=== PATIENT | female | born 1960 | race Caucasian/White ===

== ENCOUNTER 2016-11-29 12:13 | Emergency (ER) | payer BC, OTHER ==
[2016-11-29] MEDS ORDERED: Ondansetron INJ* 2 MG/ML VIAL IV ONE (13:01)
[2016-11-29] MEDS ORDERED: Ketorolac INJ* 30 MG/ML 1 ML VIAL IV ONE (13:01)
[2016-11-29] MEDS ORDERED: Morphine INJ* 4 MG/ML 1 ML CARPUJECT IV ONE (13:01)
[2016-11-29] MEDS ORDERED: Orphenadrine Citrate IV* 30 MG/ML 2 ML VIAL IV ONE (13:03)
[2016-11-29 13:23] LABS: Hematocrit 37 % (35-47); Hemoglobin 12.4 g/dl (12.0-16.0); Mean Corpuscular HGB Conc 33 g/dl (31-36); Mean Corpuscular Hemoglobin 28 pg (27-31); Mean Corpuscular Volume 83 fL (80-97); Mean Platelet Volume 9 um3 (7.4-10.4); Red Blood Count 4.51 10^6/ul (4.0-5.4); Red Cell Distribution Width 16 % (10.5-15); White Blood Count 6.2 10^3/ul (3.5-10.8)
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
[2016-11-29 13:50] LABS: Albumin 4.6 g/dL (3.2-5.2); BUN/Creatinine Ratio 28.3 (8-20); Calcium 9.3 mg/dL (8.6-10.3); EGFR African American 132.1 (>60); EGFR Non-African American 102.7 (>60); Globulin 3.2 g/dL (2-4); Potassium 4.1 mmol/L (3.5-5.0); Total Bilirubin 0.7 mg/dL (0.2-1.0); Total Protein 7.8 g/dL (6.4-8.9)
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
[2016-11-29 14:39] VITALS: BP 134/67
== END 2016-11-29 14:38 | disposition home or self-care (01) ==
LOC: ED 12:13
DX: M54.2 Cervicalgia (principal); Z04.1 Encounter for examination and observation following transport accident
CPT/HCPCS: 36415; 70450; 72125; 80053; 85025; 96374; 96375; 99283; J1885; J2270; J2360; J2405

== ENCOUNTER 2019-12-05 15:39 | Emergency (ER) | payer OTHER ==
[2019-12-05 16:16] LABS: ABS Eosinophils 0.1 10^3/ul (0-0.6); ABS Lymphocytes 1.6 10^3/ul (1.0-4.8); ABS Monocytes 0.4 10^3/ul (0-0.8); ABS Neutrophils 2.6 10^3/ul (1.5-7.7); Eosinophil % 3.1 %; Hematocrit 38 % (35-47); Lymphocyte % 33.9 %; Mean Corpuscular HGB Conc 35 g/dL (31-36); Mean Corpuscular Hemoglobin 32 pg (27-31); Mean Corpuscular Volume 92 fL (80-97); Mean Platelet Volume 8.5 fL (7.4-10.4); Platelet Count 243 10^3/uL (150-450); Red Blood Count 4.09 10^6 /uL (3.70-4.87); Red Cell Distribution Width 13 % (10-15); White Blood Count 4.8 10^3/uL (3.5-10.8)
[2019-12-05 16:25] LABS: INR 0.97 (0.82-1.09)
[2019-12-05 16:33] LABS: Albumin 4.3 g/dL (3.2-5.2); Albumin/Globulin Ratio 1.6 (1-3); BUN/Creatinine Ratio 32.8 (8-20); Calcium 9.1 mg/dL (8.6-10.3); EGFR African American 108.3 (>60); EGFR Non-African American 89.5 (>60); Globulin 2.7 g/dL (2-4); Potassium 4.3 mmol/L (3.5-5.0); Total Bilirubin 0.5 mg/dL (0.2-1.0)
[2019-12-05 16:34] LABS: Troponin I 0.01 ng/mL (<0.03)
--- NOTE | 2019-12-05 16:46 | ED ---
HPI Chest Pain - HPI Summary HPI Summary: Patient is a 59 y/o F presenting to the ED for a chief complaint of diffuse intermittent chest pain that began on 12/04/19. Patient states that on 12/04/19 , patient woke up from her sleep due to the chest pain. The pain resolved by the end of the day, but on 12/05/19, the chest pain returned. She describes the chest pain as a tightness sensation that radiates to the bilateral shoulders. Patient denies any chest pain with exertion, and notes some shortness of breath with walking. She denies fever, cough, abdominal pain, bilateral LE pain, or bilateral LE edema. Any history of DM, HTN, pulmonary embolism, DVT, COPD, or stent placement is denied. Patient denies tobacco use or aspirin use. Dr. Harry is her PCP. Allergies noted. - History of Current Complaint Chief Complaint: EDChestPainROMI Time Seen by Provider: 12/05/19 16:36 Hx Obtained From: Patient Onset/Duration: Started Hours Ago, Atraumatic, Still Present Timing: Intermittent Initial Severity: Mild Current Severity: Mild Pain Intensity: 0 Pain Scale Used: 0-10 Numeric Chest Pain Location: Diffuse Chest Pain Radiates: Yes Chest Pain Radiates To:: Shoulder - Bilateral Character: Tightness Aggravating Factor(s): Nothing Alleviating Factor(s): Nothing Associated Signs and Symptoms: Positive: Chest Pain, Shortness of Breath - With exertion. Negative: Fever, Cough, Abdominal Pain, Edema - Bilateral LE, Other: - Negative bilateral LE pain - Allergy/Home Medications Allergies/Adverse Reactions: Allergies Allergy/AdvReac Type Severity Reaction Status Date / Time No Known Allergies Allergy Verified 12/05/19 15:50 Home Medications: Home Medications Iron 1 tab PO DAILY 12/05/19 [History Confirmed 12/05/19] Preservision Areds 2 Softgel 1 cap PO DAILY 12/05/19 [History Confirmed 12/05/19 ] Vit B12/Intrinsic Fact/Folate 1 tab PO DAILY 12/05/19 [History Confirmed ] PMH/Surg Hx/FS Hx/Imm Hx Previously Healthy: Yes Endocrine/Hematology History: Reports: Hx Thyroid Disease Denies: Hx Anticoagulant Therapy, Hx Diabetes Cardiovascular History: Denies: Hx Deep Vein Thrombosis, Hx Embolism, Hx Hypertension, Hx Pacemaker/ ICD Respiratory History: Denies: Hx Asthma, Hx Chronic Obstructive Pulmonary Disease (COPD), Hx Pulmonary Embolism GI History: Denies: Hx Ulcer History: Denies: Hx Renal Disease Sensory History: Denies: Hx Legally Blind, Hx Deafness Opthamlomology History: Denies: Hx Legally Blind EENT History: Denies: Hx Deafness Neurological History: Denies: Hx Dementia, Hx Seizures Psychiatric History: Denies: Hx Substance Abuse - Cancer History Hx Chemotherapy: No Hx Radiation Therapy: No - Surgical History Surgical History: Yes Surgery Procedure, Year, and Place: TUBAL Infectious Disease History: No Infectious Disease History: Denies: Hx Hepatitis, Hx Human Immunodeficiency Virus (HIV), Traveled Outside the [place] in Last 30 Days - Family History Known Family History: Positive: Other - Breast CA -- maternal aunt - Social History Occupation: Employed Full-time Alcohol Use: None Hx Substance Use: No Substance Use Type: Reports: None Hx Tobacco Use: No Smoking Status (MU): Never Smoked Tobacco Review of Systems Negative: Fever Positive: Chest Pain Positive: Shortness Of Breath - With exertion. Negative: Cough Negative: Abdominal Pain Negative: Myalgia - Bilateral LE, Edema - Bilateral LE All Other Systems Reviewed And Are Negative: Yes Physical Exam - Summary Physical Exam Summary: Constitutional: Well-developed, Well-nourished, Alert. (-) Distressed Skin: Warm, Dry HENT: Normocephalic; Atraumatic Eyes: Conjunctiva normal Neck: Musculoskeletal ROM normal neck. (-) JVD, (-) Stridor, (-) Tracheal deviation Cardio: Rhythm regular, rate normal, Heart sounds normal; Intact distal pulses; The pedal pulses are 2+ and symmetric. Radial pulses are 2+ and symmetric. (-) Murmur Pulmonary/Chest wall: Effort normal. (-) Respiratory distress, (-) Wheezes, (-) Rales Abd: Soft, (-) tenderness, (-) Distension, (-) Guarding, (-) Rebound Musculoskeletal: (-) Edema Lymph: (-) Cervical adenopathy Neuro: Alert, Oriented x3 Psych: Mood and affect Normal Triage Information Reviewed: Yes Vital Signs On Initial Exam: Initial Vitals Temp Pulse Resp BP Pulse Ox 97.8 F 85 18 150/80 99 12/05/19 15:47 12/05/19 15:47 12/05/19 15:47 12/05/19 15:47 12/05/19 15:47 Vital Signs Reviewed: Yes Procedures - Sedation Patient Received Moderate/Deep Sedation with Procedure: No Diagnostics - Vital Signs Vital Signs Temp Pulse Resp BP Pulse Ox 12/05/19 15:47 97.8 F 85 18 150/80 99 - Laboratory Lab Results: Lab Results 12/05/19 12/05/19 12/05/19 Range/Units 16:08 16:08 16:08 WBC 4.8 (3.5-10.8) 10^3/uL RBC 4.09 (3.70-4.87) 10^6 /uL Hgb 13.0 (12.0-16.0) g/dL Hct 38 (35-47) % MCV 92 (80-97) fL MCH 32 H (27-31) pg MCHC 35 (31-36) g/dL RDW 13 (10-15) % Plt Count 243 (150-450) 10^3/uL MPV 8.5 (7.4-10.4) fL Neut % (Auto) 54.6 % Lymph % (Auto) 33.9 % [place] % (Auto) 7.5 % Eos % (Auto) 3.1 % Baso % (Auto) 0.9 % Absolute Neuts (auto) 2.6 (1.5-7.7) 10^3/ul Absolute Lymphs (auto) 1.6 (1.0-4.8) 10^3/ul Absolute Monos (auto) 0.4 (0-0.8) 10^3/ul Absolute Eos (auto) 0.1 (0-0.6) 10^3/ul Absolute Basos (auto) 0.0 (0-0.2) 10^3/ul Absolute Nucleated RBC 0.0 10^3/ul Nucleated RBC % 0.0 INR (Anticoag Therapy) 0.97 (0.82-1.09) Sodium 139 (135-145) mmol/L Potassium 4.3 (3.5-5.0) mmol/L Chloride 106 (101-111) mmol/L Carbon Dioxide 25 (22-32) mmol/L Anion Gap 8 (2-11) mmol/L BUN 22 (6-24) mg/dL Creatinine 0.67 (0.51-0.95) mg/dL Est GFR ( Amer) 108.3 (>60) Est GFR (Non-Af Amer) 89.5 (>60) BUN/Creatinine Ratio 32.8 H (8-20) Glucose 95 (70-100) mg/dL Calcium 9.1 (8.6-10.3) mg/dL Total Bilirubin 0.50 (0.2-1.0) mg/dL AST 28 (13-39) U/L ALT 39 (7-52) U/L Alkaline Phosphatase 83 (34-104) U/L Troponin I 0.01 (<0.03) ng/mL Total Protein 7.0 (6.4-8.9) g/dL Albumin 4.3 (3.2-5.2) g/dL Globulin 2.7 (2-4) g/dL Albumin/Globulin Ratio 1.6 (1-3) Result Diagrams: 12/05/19 16:08 12/05/19 16:08 Lab Statement: Any lab studies that have been ordered have been reviewed, and results considered in the medical decision making process. - Radiology Chest X-ray Radiology Interpretation Completed By: Radiologist Summary of Radiographic Findings: Chest X-ray IMPRESSION: NO ACTIVE CARDIOPULMONARY DISEASE IS NOTED. Reviewed by Dr. Villarreal. - EKG 15:40 Cardiac Rate: NL - 83 BPM EKG Rhythm: Sinus Rhythm ST Segment: Normal Ectopy: None Summary of EKG Findings: EKG at 15:40 shows normal sinus rhythm with 83 BPM, no ischemic changes. Dr. Villarreal has reviewed and interpreted this EKG. Chest Pain Course/Dx - Course Course Of Treatment: Patient is a 59 y/o F presenting to the ED for a chief complaint of diffuse intermittent chest pain that began on 12/04/19. Patient states that on 12/04/19, patient woke up from her sleep due to the chest pain. The pain resolved by the end of the day, but on 12/05/19, the chest pain returned. She describes the chest pain as a tightness sensation that radiates to the bilateral shoulders. Patient denies any chest pain with exertion, and notes some shortness of breath with walking. She denies fever, cough, abdominal pain, bilateral LE pain, or bilateral LE edema. Any history of DM, HTN, pulmonary embolism, DVT, COPD, or stent placement is denied. Patient denies tobacco use or aspirin use. Dr. Harry is her PCP. Allergies noted. On exam, unremarkable findings. In the ED course, patient was given Toradol 30 mg IV PUSH and IV fluids. Laboratory abnormal findings: MCH 32, BUN/Creatinine ratio 32.8. EKG at 15:40 shows normal sinus rhythm with 83 BPM, no ischemic changes. Chest X-ray IMPRESSION: NO ACTIVE CARDIOPULMONARY DISEASE IS NOTED. Patient will be discharged with a diagnosis of chest pain. Follow up with PCP in 1-2 days. - Diagnoses Provider Diagnoses: Chest pain Discharge ED - Sign-Out/Discharge Documenting (check all that apply): Patient Departure - Discharge - Discharge Plan Condition: Stable Disposition: HOME Patient Education Materials: Chest Pain (ED) Referrals: Reuben Harry MD [Primary Care Provider] - Additional Instructions: RETURN TO THE EMERGENCY DEPARTMENT FOR CHANGING OR WORSENING SYMPTOMS. Follow up with your primary care physician within 1-2 days. - Billing Disposition and Condition Condition: STABLE Disposition: Home - Attestation Statements Document Initiated by Leonardo: Yes Documenting Scribe: Sarah Briceño Provider For Whom Leonardo is Documenting (Include Credential): Patrick Villarreal DO Scribe Attestation: Sarah Mooney scribed for Patrick Villarreal DO on 12/05/19 at 2052. Scribe Documentation Reviewed: Yes Provider Attestation: The documentation as recorded by the [email or web address] accurately reflects the service I personally performed and the decisions made by , Patrick Villarreal DO Status of Scribe Document: Viewed
[2019-12-05] MEDS ORDERED: NS 0.9% 1000 ML** 1,000 ML IV ONE (17:53)
[2019-12-05] MEDS: Ketorolac INJ* 30 MG/ML 1 ML VIAL IV PUSH ONE ×2 (18:37→19:16)
[2019-12-05 20:37] VITALS: BP 155/75
== END 2019-12-05 20:36 | disposition home or self-care (01) ==
LOC: ED 15:39
DX: R07.9 Chest pain, unspecified (principal); R06.02 Shortness of breath; E03.9 Hypothyroidism, unspecified; Z79.899 Other long term (current) drug therapy
CPT/HCPCS: 36415; 71045; 80053; 84484; 85025; 85379; 85610; 93005; 96360; 99283; J1885

== ENCOUNTER 2024-10-02 10:45 | Observation (INO) ==
[2024-10-02 13:59] LABS: ABS Lymphocytes 1.4 10^3/uL (1.0-4.8); ABS Monocytes 0.5 10^3/uL (0.0-0.9); ABS Neutrophils 5.7 10^3/uL (1.5-7.6); ABS Nucleated RBC 0.01 10^3/ul; Eosinophil % 0.3 %; Hemoglobin 12.8 g/dL (11.5-14.3); Mean Corpuscular Hemoglobin 30.5 pg (27-33); Mean Corpuscular Hgb Conc 33.6 g/dL (31-36); Mean Corpuscular Volume 90.9 fL (80-97); Mean Platelet Volume 8.2 fL (7.5-11.2); Nucleated Red Blood Cells % 0.1 %/100WBC (0.0-0.8); Platelet Count 273 10^3/uL (150-450); Red Blood Count 4.18 10^6/uL (3.63-4.92); Red Cell Distribution Width 13.7 % (12-17); White Blood Count 7.6 10^3/uL (3.8-11.8)
[2024-10-02 14:08] LABS: Urine Appearance Clear; Urine Bilirubin Negative (Negative); Urine Blood Trace (Negative); Urine Color Colorless; Urine Glucose Negative (Negative); Urine Ketones Negative (Negative); Urine Nitrite Negative (Negative); Urine Protein Negative (Negative); Urine Specific Gravity 1.004 (1.002-1.030); Urine Urobilinogen Negative (Negative); Urine pH 6.5 (5.0-8.0)
[2024-10-02 14:21] LABS: Urine Bacteria Absent /HPF (Absent); Urine Red Blood Cell Trace(0-2/hpf) /HPF (0-Trace); Urine Squamous Epithelial Cell Present /HPF (Absent); Urine White Blood Cell 1+(6-10/hpf) /HPF (0-Trace)
[2024-10-02 14:27] LABS: High Sens Troponin Baseline 11 pg/mL (<15)
[2024-10-02 14:42] LABS: ALT 24 U/L (7-52); AST 29 U/L (13-39); Albumin 4.8 g/dL (3.2-5.2); Albumin/Globulin Ratio 1.8 (1-3); Alkaline Phosphatase 77 U/L (35-149); Anion Gap 9 mmol/L (2-16); Blood Urea Nitrogen 18 mg/dL (6-24); CO2 Carbon Dioxide 28 mmol/L (22-32); Calcium 9.8 mg/dL (8.6-10.3); Chloride 102 mmol/L (101-111); Globulin 2.7 g/dL (2-4); Glucose 96 mg/dL (70-100); Magnesium 2.1 mg/dL (1.9-2.7); Sodium 139 mmol/L (135-145); Total Bilirubin 0.8 mg/dL (0.2-1.0); Total Protein 7.5 g/dL (6.4-8.9); eGFR CKD-EPI 95.3 (>60)
[2024-10-02 15:40] LABS: High Sensitivity Troponin 1 Hr 11 pg/mL (<15)
[2024-10-02 16:44] LABS: Alcohol, S < 13 mg/dL (<13)
[2024-10-02 17:00] LABS: TSH Ultra Thyroid Stim Horm 2.35 mcIU/mL (0.34-5.60)
[2024-10-02 17:11] LABS: Vitamin B12 101 pg/mL (180-914)
[2024-10-02] MEDS ORDERED: Sulfur Hexaflouride MICROSPHR 25 MG VIAL IV PRN (17:20)
[2024-10-02] MEDS: Thiamine 100 MG/ML 2 ml VIAL (200 mg) IM ONE (18:26)
[2024-10-02] MEDS: Multivitamins/Minerals TAB PO SCH (18:26)
[2024-10-02 19:56] LABS: Urine Benzodiazepine Screen None Detected (None Detect); Urine Cannabinoids Screen None Detected (None Detect); Urine Opiates Screen None Detected (None Detect)
[2024-10-02] MEDS: Cyanocobalamin INJ 1,000 MCG/ML VIAL 1 ML VIAL IM SCH (20:08)
[2024-10-03 06:54] LABS: ABS Eosinophils 0.1 10^3/uL (0.0-0.5); ABS Lymphocytes 1.4 10^3/uL (1.0-4.8); ABS Monocytes 0.5 10^3/uL (0.0-0.9); ABS Neutrophils 2.6 10^3/uL (1.5-7.6); Eosinophil % 2.9 %; Hematocrit 35.9 % (35-45); Hemoglobin 12.1 g/dL (11.5-14.3); Lymphocyte % 30.3 %; Mean Corpuscular Hemoglobin 30.5 pg (27-33); Mean Corpuscular Hgb Conc 33.8 g/dL (31-36); Mean Corpuscular Volume 90.2 fL (80-97); Mean Platelet Volume 8.4 fL (7.5-11.2); Platelet Count 228 10^3/uL (150-450); Red Blood Count 3.98 10^6/uL (3.63-4.92); Red Cell Distribution Width 13.8 % (12-17); White Blood Count 4.8 10^3/uL (3.8-11.8)
[2024-10-03 07:05] LABS: Creatinine, Serum 0.62 mg/dL (0.51-0.95); Magnesium 2.1 mg/dL (1.9-2.7); Potassium 4.4 mmol/L (3.5-5.0); eGFR CKD-EPI 98.2 (>60)
[2024-10-03] MEDS: Aspirin EC 81 mg TAB.EC (enteric coated) PO SCH (09:42)
[2024-10-03] MEDS: Cyanocobalamin INJ 1,000 MCG/ML VIAL 1 ML VIAL IM SCH (12:02)
[2024-10-03 17:39] VITALS: BP 142/81
[2024-10-03] MEDS ORDERED: Enoxaparin 40 MG/0.4 ML SYR SUBCUT SCH (19:00)
[2024-10-04] MEDS ORDERED: Cyanocobalamin INJ 1,000 MCG/ML VIAL 1 ML VIAL IM SCH (11:20)
== END 2024-10-03 18:18 | disposition home or self-care (01) ==
LOC: ED 10:45 → EDHOLD 10:45 → MEDTELE 17:31
PROVIDERS: ADMIT Hospitalist; ATTEND Hospitalist